=== PATIENT | male | born 1960 | race Caucasian/White ===

== ENCOUNTER 2017-09-18 12:23 | Emergency (ER) | payer BC ==
[2017-09-18 12:27] VITALS: BP 156/91
[2017-09-18] MEDS ORDERED: Bacitracin/Neomycin/Polymyxin B Oint 0.9 GM U/D Packet TOP ONE (12:49)
[2017-09-18] MEDS ORDERED: Diphtheria,Pertussis(Acell),Tetanus Vaccine 0.5 ML SDV IM ONE (12:50)
--- NOTE | 2017-09-18 13:02 | EDM.PDOC ---
ED HPI GENERAL MEDICAL PROBLEM - General Chief Complaint: Upper Extremity Injury/Pain Stated Complaint: right hand crush injury Time Seen by Provider: 09/18/17 12:30 Source of Information: Reports: Patient History Limitations: Reports: No Limitations - History of Present Illness INITIAL COMMENTS - FREE TEXT/NARRATIVE: Patient is a 57-year-old who was working in his shop when he got his hand caught with a phase the bulk of the facial and a piece of metal he was seen in the ER where the blood was taken off their were swelling in the thumb area and there was a abrasions x-rays were obtained no fracture seen a Art dressing was done and patient sent home Onset: Today, Sudden Duration: Hour(s):, Getting Worse Location: Reports: Upper Extremity, Right Quality: Reports: Ache, Throbbing Severity: Moderate Improves with: Reports: Cold Therapy Worsens with: Reports: None, Movement Context: Reports: Trauma Associated Symptoms: Reports: Other Treatments FACULTY HEAD: Reports: Acetaminophen Right Hand Pain Score (Numeric/FACES): 3 - Related Data Allergies Allergy/AdvReac Type Severity Reaction Status Date / Time No Known Allergies Allergy Verified 09/18/17 12:28 Home Meds: Home Meds Acetaminophen [Tylenol] 650 mg PO Q6H PRN 06/18/16 [History] Aspirin [Halfprin] 81 mg PO BRK 06/18/16 [History] Cetirizine HCl [Zyrtec] 10 mg PO ASDIRECTED 06/18/16 [History] EPINEPHrine [Epipen] 0.3 mg IM ONETIME PRN 06/18/16 [History] Fluticasone Propionate [Flonase] 1 puff INH DAILY PRN 06/18/16 [History] Furosemide [Lasix] 20 mg PO DAILY PRN 06/18/16 [History] Losartan [Cozaar] 100 mg PO DAILY 06/18/16 [History] Multivitamin [One Daily Multivitamin] 1 each PO DAILY 09/18/17 [History] Past Medical History Cardiovascular History: Reports: High Cholesterol, Hypertension, Other (See Below) Other Cardiovascular History: extreme morbid obesity Gastrointestinal History: Reports: Diverticulosis, Hemorrhoids, Other (See Below ) Other Gastrointestinal History: hx of colon polyp x 1 Genitourinary History: Reports: Other (See Below) Other Genitourinary History: hypogonadism Musculoskeletal History: Reports: Fracture Endocrine/Metabolic History: Reports: Obesity/BMI 30+ Hematologic History: Reports: Other (See Below) Other Hematologic History: vitamin D deficiency - Infectious Disease History Infectious Disease History: Reports: Chicken Pox, Measles, Mumps - Past Surgical History Musculoskeletal Surgical History: Reports: Other (See Below) Other Musculoskeletal Surgeries/Procedures:: left ankle surgery Social & Family History - Tobacco Use Smoking Status *Q: Former Smoker Years of Tobacco use: 20 Packs/Tins Daily: 3 Used Tobacco, but Quit: Yes Month/Year Tobacco Last Used: 1 - Caffeine Use Caffeine Use: Reports: Coffee, Soda - Recreational Drug Use Recreational Drug Use: No Review of Systems - Review of Systems Review Of Systems: See Below Constitutional: Reports: No Symptoms Eyes: Reports: No Symptoms Ears: Reports: No Symptoms Nose: Reports: No Symptoms Mouth/Throat: Reports: No Symptoms Respiratory: Reports: No Symptoms Cardiovascular: Reports: No Symptoms GI/Abdominal: Reports: No Symptoms Genitourinary: Reports: No Symptoms Musculoskeletal: Reports: Hand Pain Skin: Reports: Wound Neurological: Reports: No Symptoms Psychiatric: Reports: No Symptoms ED EXAM, GENERAL - Physical Exam Exam: See Below Exam Limited By: No Limitations General Appearance: Alert, WD/WN, No Apparent Distress Ears: Normal External Exam, Normal Canal, Hearing Grossly Normal, Normal TMs Nose: Normal Inspection, Normal Mucosa, No Blood Throat/Mouth: Normal Inspection, Normal Lips, Normal Teeth, Normal Gums, Normal Oropharynx, Normal Voice, No Airway Compromise Head: Atraumatic, Normocephalic Neck: Normal Inspection, Supple, Non-Tender, Full Range of Motion Respiratory/Chest: No Respiratory Distress, Lungs Clear, Normal Breath Sounds, No Accessory Muscle Use, Chest Non-Tender Cardiovascular: Normal Peripheral Pulses, Regular Rate, Rhythm, No Edema, No Gallop, No JVD, No Murmur, No Rub GI/Abdominal: Normal Bowel Sounds, Soft, Non-Tender, No Organomegaly, No Distention, No Abnormal Bruit, No Mass (Male) Exam: Deferred Rectal (Males) Exam: Deferred Back Exam: Normal Inspection, Full Range of Motion, NT Extremities: Normal Capillary Refill, Other (Hand pain). No: Normal Inspection (Right hand swelling and abrasion) Neurological: Alert, Oriented, CN II-XII Intact, Normal Cognition, Normal Gait, Normal Reflexes, No Motor/Sensory Deficits Psychiatric: Normal Affect, Normal Mood Skin Exam: Warm, Dry, Normal Color, No Rash, Wound/Incision (Abrasion right thumb) Course - Vital Signs Last Recorded V/S: Last Vital Signs Temp 98 F 09/18/17 12:23 Pulse 78 09/18/17 12:23 Resp 20 09/18/17 12:23 BP 156/91 H 09/18/17 12:23 Pulse Ox 97 09/18/17 12:23 - Orders/Labs/Meds Orders: Active Orders 24 hr Category Date Time Status Vaccines to be Administered [RC] PER UNIT ROUTINE Care 09/18/17 12:52 Ordered Hand Comp Min 3V Rt [CR] Stat Exams 09/18/17 12:36 Taken Bacitracin/Neomycin/Polymyxin [Triple Antibiotic Oint] Med 09/18/17 12:49 Once 2 each TOP ONETIME ONE Diphth,Pertuss(Acell),Tet Vac [Adacel] Med 09/18/17 12:50 Once 0.5 ml IM .ONCE ONE Departure - Departure Time of Disposition: 13:22 Disposition: Home, Self-Care 01 Condition: Fair Clinical Impression: Crush injury of hand - Discharge Information Care Plan Goals: A Art dressing was applied patient is to leave it on for 4 days follow-up in the clinic take Tylenol for pain ice to hand - My Orders Last 24 Hours: My Active Orders 09/18/17 12:36 Hand Comp Min 3V Rt [CR] Stat 09/18/17 12:49 Bacitracin/Neomycin/Polymyxin [Triple Antibiotic Oint] 2 each TOP ONETIME ONE 09/18/17 12:50 Diphth,Pertuss(Acell),Tet Vac [Adacel] 0.5 ml IM .ONCE ONE 09/18/17 12:52 Vaccines to be Administered [RC] PER UNIT ROUTINE - Assessment/Plan Last 24 Hours: My Active Orders 09/18/17 12:36 Hand Comp Min 3V Rt [CR] Stat 09/18/17 12:49 Bacitracin/Neomycin/Polymyxin [Triple Antibiotic Oint] 2 each TOP ONETIME ONE 09/18/17 12:50 Diphth,Pertuss(Acell),Tet Vac [Adacel] 0.5 ml IM .ONCE ONE 09/18/17 12:52 Vaccines to be Administered [RC] PER UNIT ROUTINE
== END 2017-09-18 13:32 | disposition home or self-care (01) ==
LOC: LL.ED 12:23
DX: S67.21XA Crushing injury of right hand, initial encounter (principal); S60.311A Abrasion of right thumb, initial encounter; Z23 Encounter for immunization; W23.1XXA Caught, crushed, jammed, or pinched between stationary objects, initial encounter; Y99.0 Civilian activity done for income or pay
CPT/HCPCS: 73130-RT; 90715; 96372; 99283

== ENCOUNTER 2021-02-26 14:48 | Inpatient (IN) | payer BC ==
[2021-02-26] MEDS ORDERED: Dexamethasone 10 MG/ML SDV IVPUSH ONE (14:53)
[2021-02-26] MEDS ORDERED: Dexamethasone 2 MG Tab PO ONE (14:57)
--- NOTE | 2021-02-26 15:01 | EDM.PDOC ---
ED HPI GENERAL MEDICAL PROBLEM - General Chief Complaint: Respiratory Problem Stated Complaint: Hypoxia, COVID 19 Time Seen by Provider: 02/26/21 14:50 Source of Information: Reports: Patient History Limitations: Reports: No Limitations - History of Present Illness INITIAL COMMENTS - FREE TEXT/NARRATIVE: Patient comes emergency department today with concerns of COVID-19. This patient started with symptoms of fatigue not feeling well about 7 to 9 days ago. He had an outpatient Covid test that was positive yesterday. He contacted his clinic and they ordered monoclonal antibody therapy for him today. It was noted when he was here after he received his monoclonal antibody that his oxygen saturation has been in the low 80s. He is very tired he has fatigue. He has not been eating or drinking much. He has not been taking his chronic medications. He has had a congested cough that is nonproductive. He has no chest pain he has some generalized weakness. No palpitations lightheadedness dizziness or syncope. No abdominal pain he has had poor appetite nausea without vomiting. No hematuria dysuria urinary frequency. No black or tarry stools. He is not vaccinated. Does have a history of hypertension borderline diabetes. he does have a history of sleep apnea hypertension morbid obesity hypercholesteremia pancytopenia tubular adenoma the colon hemorrhage of the rectum and anus. - Related Data Allergies Allergy/AdvReac Type Severity Reaction Status Date / Time metformin Allergy Anaphylactic Verified 02/26/21 14:17 Shock Home Meds: Home Meds Acetaminophen [Tylenol] 1,000 mg PO Q4HR PRN 06/18/16 [History] Aspirin [Halfprin] 81 mg PO BRK 06/18/16 [History] Cetirizine HCl [Zyrtec] 10 mg PO ASDIRECTED 06/18/16 [History] Fluticasone Propionate [Flonase] 1 puff INH BID PRN 06/18/16 [History] Losartan [Cozaar] 100 mg PO DAILY 06/18/16 [History] Diclofenac Sodium [Voltaren 1% Gel] 2 gm TOP BID 05/24/20 [History] Naproxen Sodium [Aleve] 220 mg PO BID PRN 05/24/20 [History] atorvaSTATin [Lipitor] 10 mg PO DAILY 05/24/20 [History] bisacodyL [Bisacodyl] 5 mg PO BEDTIME PRN 05/24/20 [History] dilTIAZem HCL [Diltiazem 24Hr ER (Cd)] 180 mg PO DAILY 05/24/20 [History] hydroCHLOROthiazide [Hydrochlorothiazide] 25 mg PO DAILY 05/24/20 [History] polyethylene glycoL 3350 [MiraLAX] 17 gm PO DAILY 05/24/20 [History] Past Medical History HEENT History: Reports: Impaired Vision Cardiovascular History: Reports: High Cholesterol, Hypertension, Other (See Below) Other Cardiovascular History: extreme morbid obesity Gastrointestinal History: Reports: Diverticulosis, Hemorrhoids, Other (See Below) Other Gastrointestinal History: hx of colon polyp x 1 Genitourinary History: Reports: Other (See Below) Other Genitourinary History: hypogonadism. 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 left knee replacement. rt rotator cuff. fx wrist Social & Family History - Family History Family Medical History: No Pertinent Family History - Caffeine Use Caffeine Use: Reports: Coffee, Soda ED ROS GENERAL - Review of Systems Review Of Systems: Comprehensive ROS is negative, except as noted in HPI. ED EXAM, GENERAL - Physical Exam Exam: See Below Exam Limited By: No Limitations General Appearance: Alert, WD/WN, No Apparent Distress Eye Exam: Bilateral Eye: EOMI Ears: Normal External Exam Nose: Normal Inspection, Normal Mucosa Throat/Mouth: Normal Inspection Head: Atraumatic, Normocephalic Neck: Normal Inspection, Supple, Non-Tender, Full Range of Motion Respiratory/Chest: No Respiratory Distress, No Accessory Muscle Use, Decreased Breath Sounds, Wheezing (inspiratory and expiratory wheezing bilaterally. ) Cardiovascular: Normal Peripheral Pulses, Regular Rate, Rhythm Peripheral Pulses: 2+: Radial (L), Radial (R), Posterior Tibial (L), Posterior Tibial (R), Dorsalis Pedis (L), Dorsalis Pedis (R) GI/Abdominal: Normal Bowel Sounds, Soft, Non-Tender (Male) Exam: Deferred Rectal (Males) Exam: Deferred Back Exam: Normal Inspection, Full Range of Motion Extremities: Normal Inspection, Normal Range of Motion, Normal Capillary Refill Neurological: Alert, Oriented, CN II-XII Intact, Normal Cognition, Normal Gait, No Motor/Sensory Deficits Psychiatric: Normal Affect, Normal Mood Skin Exam: Warm, Dry, Intact, Normal Color, No Rash Lymphatic: No Adenopathy Course - Vital Signs Last Recorded V/S: Last Vital Signs Temp 97.8 F 02/26/21 16:24 Pulse 98 02/26/21 18:00 Resp 30 H 02/26/21 16:24 BP 136/73 02/26/21 18:00 Pulse Ox 94 L 02/26/21 18:00 - Orders/Labs/Meds Orders: Active Orders 24 hr Category Date Time Status Admission Status [Patient Status] [ADT] Routine ADT 02/26/21 17:18 Active RT Aerosol Therapy [RC] ASDIRECTED Care 02/26/21 15:07 Active Chest 1V Frontal [CR] Stat Exams 02/26/21 14:52 Taken CULTURE BLOOD [BC] Stat Lab 02/26/21 15:26 Received CULTURE BLOOD [BC] Stat Lab 02/26/21 15:35 Received PROCALCITONIN [REF] Stat Lab 02/26/21 15:26 Received UA RFX ALAYNA AND CULT IF INDIC [URIN] Stat Lab 02/26/21 14:52 Ordered Blood Culture x2 Reflex Set [OM.PC] Stat Oth 02/26/21 14:52 Ordered Medication Orders Acetaminophen (Acetaminophen 325 Mg Tab) 650 mg PO Q4H PRN PRN Reason: Pain (Mild 1-3)/fever Dexamethasone (Dexamethasone 2 Mg Tab) 6 mg PO DAILY [facility] Enoxaparin Sodium (Enoxaparin 40 Mg/0.4 Ml Syringe) 40 mg SUBCUT BID [facility] Last Admin: 02/26/21 20:00 Dose: 40 mg Documented by: GUZMAN Potassium Chloride/Sodium Chloride (Normal Saline With 20 Meq Kcl) 1,000 mls @ 125 mls/hr IV ASDIRECTED [facility] Last Admin: 02/26/21 18:04 Dose: 125 mls/hr Documented by: DEVYN Remdesivir 100 mg/ Sodium (Chloride) 100 mls @ 100 mls/hr IV Q24H [facility] Labs: Laboratory Tests 09/01/21 09/01/21 09/01/21 Range/Units 15:26 15:26 15:26 WBC 6.2 (4.0-10.2) K/uL RBC 4.61 (4.33-5.41) M/uL Hgb 14.0 D (13.1-16.8) g/dL Hct 39.8 (39.0-49.0) % MCV 86.3 (84.0-98.0) fL MCH 30.4 (28.2-33.3) pg MCHC 35.2 (31.7-36.0) g/dL RDW 13.1 (11.2-14.1) % Plt Count 133 L (150-350) K/uL Neut % (Auto) 82.3 H (45.0-80.0) % Lymph % (Auto) 9.4 L (10.0-50.0) % Valley % (Auto) 8.0 (2.0-14.0) % Eos % (Auto) 0.0 (0.0-5.0) % Baso % (Auto) 0.3 (0.0-2.0) % Neut # (Auto) 5.07 (1.40-7.00) K/uL Lymph # (Auto) 0.58 (0.50-3.50) K/uL Valley # (Auto) 0.49 (0.00-1.00) K/uL Eos # (Auto) 0.00 (0.00-0.50) K/uL Baso # (Auto) 0.02 (0.00-0.20) K/uL PT 10.9 (9.5-12.0) SEC INR 1.1 APTT 29.1 (24.5-32.8) SEC D-Dimer, Quantitative (0-400) ng/mL VBG pH (7.31-7.41) VBG pCO2 (41-51) mmHG VBG pO2 mmHG VBG HCO3 (23-28) mmol/L VBG Total CO2 mmol/L VBG O2 Saturation % VBG Base Excess ((-2)-3) mmol/L O2 Delivery Device Sodium 135 L (136-145) mmol/L Potassium 3.3 L (3.5-5.1) mmol/L Chloride 97 L (98-107) mmol/L Carbon Dioxide 30.6 (21.0-32.0) mmol/L Anion Gap 10.7 (7-15) meq/L BUN 23 H (7-18) mg/dL Creatinine 1.35 H (0.51-1.17) mg/dL Est Cr Clr Drug Dosing TNP Estimated GFR (MDRD) 53 mL/min Glucose 211 H (70-99) mg/dL Lactic Acid (0.4-2.0) mmol/L Calcium 8.5 (8.5-10.1) mg/dL Ferritin (8-388) ng/mL Total Bilirubin 1.0 (0.2-1.0) mg/dL AST 33 (15-37) U/L ALT 29 (12-78) U/L Alkaline Phosphatase 44 L (46-116) IU/L Lactate Dehydrogenase 328 H (81-234) U/L Troponin I High Sens 51 (<=76) ng/L C-Reactive Protein 17.2 H (<=0.9) mg/dL NT-Pro-B Natriuret Pep 214 H (0-125) pg/mL Total Protein 7.0 (6.4-8.2) g/dL Albumin 2.9 L (3.4-5.0) g/dL 02/26/21 02/26/21 02/26/21 Range/Units 15:26 15:26 15:26 WBC (4.0-10.2) K/uL RBC (4.33-5.41) M/uL Hgb (13.1-16.8) g/dL Hct (39.0-49.0) % MCV (84.0-98.0) fL MCH (28.2-33.3) pg MCHC (31.7-36.0) g/dL RDW (11.2-14.1) % Plt Count (150-350) K/uL Neut % (Auto) (45.0-80.0) % Lymph % (Auto) (10.0-50.0) % Valley % (Auto) (2.0-14.0) % Eos % (Auto) (0.0-5.0) % Baso % (Auto) (0.0-2.0) % Neut # (Auto) (1.40-7.00) K/uL Lymph # (Auto) (0.50-3.50) K/uL Valley # (Auto) (0.00-1.00) K/uL Eos # (Auto) (0.00-0.50) K/uL Baso # (Auto) (0.00-0.20) K/uL PT (9.5-12.0) SEC INR APTT (24.5-32.8) SEC D-Dimer, Quantitative 915 H (0-400) ng/mL VBG pH (7.31-7.41) VBG pCO2 (41-51) mmHG VBG pO2 mmHG VBG HCO3 (23-28) mmol/L VBG Total CO2 mmol/L VBG O2 Saturation % VBG Base Excess ((-2)-3) mmol/L O2 Delivery Device Sodium (136-145) mmol/L Potassium (3.5-5.1) mmol/L Chloride (98-107) mmol/L Carbon Dioxide (21.0-32.0) mmol/L Anion Gap (7-15) meq/L BUN (7-18) mg/dL Creatinine (0.51-1.17) mg/dL Est Cr Clr Drug Dosing Estimated GFR (MDRD) mL/min Glucose (70-99) mg/dL Lactic Acid 1.2 (0.4-2.0) mmol/L Calcium (8.5-10.1) mg/dL Ferritin 1436 H (8-388) ng/mL Total Bilirubin (0.2-1.0) mg/dL AST (15-37) U/L ALT (12-78) U/L Alkaline Phosphatase (46-116) IU/L Lactate Dehydrogenase (81-234) U/L Troponin I High Sens (<=76) ng/L C-Reactive Protein (<=0.9) mg/dL NT-Pro-B Natriuret Pep (0-125) pg/mL Total Protein (6.4-8.2) g/dL Albumin (3.4-5.0) g/dL 02/26/21 Range/Units 15:26 WBC (4.0-10.2) K/uL RBC (4.33-5.41) M/uL Hgb (13.1-16.8) g/dL Hct (39.0-49.0) % MCV (84.0-98.0) fL MCH (28.2-33.3) pg MCHC (31.7-36.0) g/dL RDW (11.2-14.1) % Plt Count (150-350) K/uL Neut % (Auto) (45.0-80.0) % Lymph % (Auto) (10.0-50.0) % Valley % (Auto) (2.0-14.0) % Eos % (Auto) (0.0-5.0) % Baso % (Auto) (0.0-2.0) % Neut # (Auto) (1.40-7.00) K/uL Lymph # (Auto) (0.50-3.50) K/uL Valley # (Auto) (0.00-1.00) K/uL Eos # (Auto) (0.00-0.50) K/uL Baso # (Auto) (0.00-0.20) K/uL PT (9.5-12.0) SEC INR APTT (24.5-32.8) SEC D-Dimer, Quantitative (0-400) ng/mL VBG pH 7.45 H (7.31-7.41) VBG pCO2 42 (41-51) mmHG VBG pO2 193 mmHG VBG HCO3 29 H (23-28) mmol/L VBG Total CO2 29 mmol/L VBG O2 Saturation 100 % VBG Base Excess 4 H ((-2)-3) mmol/L O2 Delivery Device Nasal cannula Sodium (136-145) mmol/L Potassium (3.5-5.1) mmol/L Chloride (98-107) mmol/L Carbon Dioxide (21.0-32.0) mmol/L Anion Gap (7-15) meq/L BUN (7-18) mg/dL Creatinine (0.51-1.17) mg/dL Est Cr Clr Drug Dosing Estimated GFR (MDRD) mL/min Glucose (70-99) mg/dL Lactic Acid (0.4-2.0) mmol/L Calcium (8.5-10.1) mg/dL Ferritin (8-388) ng/mL Total Bilirubin (0.2-1.0) mg/dL AST (15-37) U/L ALT (12-78) U/L Alkaline Phosphatase (46-116) IU/L Lactate Dehydrogenase (81-234) U/L Troponin I High Sens (<=76) ng/L C-Reactive Protein (<=0.9) mg/dL NT-Pro-B Natriuret Pep (0-125) pg/mL Total Protein (6.4-8.2) g/dL Albumin (3.4-5.0) g/dL Meds: Medications Generic Name Dose Route Start Last Admin Trade Name Niranjan PRN Reason Stop Dose Admin Acetaminophen 650 mg 02/26/21 17:33 Acetaminophen 325 Mg Tab PO Q4H PRN Pain (Mild 1-3)/fever Dexamethasone 6 mg 02/27/21 08:00 Dexamethasone 2 Mg Tab PO DAILY CORINNA Enoxaparin Sodium 40 mg 02/26/21 18:00 02/26/21 20:00 Enoxaparin 40 Mg/0.4 Ml Syringe SUBCUT 40 mg BID CORINNA Administration Potassium Chloride/Sodium Chloride 1,000 mls @ 125 mls/hr 02/26/21 17:30 02/26/21 18:04 Normal Saline With 20 Meq Kcl IV 125 mls/hr ASDIRECTED CORINNA Administration Remdesivir 100 mg/ Sodium 100 mls @ 100 mls/hr 02/27/21 17:30 Chloride IV Q24H CORINNA Discontinued Medications Generic Name Dose Route Start Last Admin Trade Name Niranjan PRN Reason Stop Dose Admin Albuterol/Ipratropium 3 ml 02/26/21 15:07 02/26/21 18:05 Albuterol/Ipratropium 3.0-0.5 Mg/3 Ml Neb Soln NEB 02/26/21 15:08 3 ml ONETIME ONE Administration Albuterol/Ipratropium Confirm 02/26/21 17:27 02/26/21 18:02 Albuterol/Ipratropium 3.0-0.5 Mg/3 Ml Neb Soln Administered 02/26/21 17:28 Not Given Dose 3 ml .ROUTE .STK-MED ONE Budesonide 0.5 mg 02/26/21 15:07 02/26/21 18:05 Budesonide 0.5 Mg/2 Ml Neb Susp NEB 02/26/21 15:08 0.5 mg ONETIME ONE Administration Budesonide Confirm 02/26/21 17:27 02/26/21 18:02 Budesonide 0.5 Mg/2 Ml Neb Susp Administered 02/26/21 17:28 Not Given Dose 0.5 mg .ROUTE .STK-MED ONE Dexamethasone 6 mg 02/26/21 14:57 02/26/21 18:05 Dexamethasone 2 Mg Tab PO 02/26/21 14:58 6 mg ONETIME ONE Administration Dexamethasone Confirm 02/26/21 17:26 02/26/21 18:03 Dexamethasone 2 Mg Tab Administered 02/26/21 17:27 Not Given Dose 6 mg .ROUTE .STK-MED ONE Remdesivir 200 mg/ Sodium 250 mls @ 250 mls/hr 02/26/21 17:30 02/26/21 19:54 Chloride IV 02/26/21 18:29 250 mls/hr ONETIME ONE Administration - Radiology Interpretation Free Text/Narrative:: Cardiac silhouette is enlarged. There are patchy airspace opacities mostly in the periphery of the lungs often seen with COVID-19 infection. No effusion or pneumothorax this is per radiology. - Re-Assessments/Exams Free Text/Narrative Re-Assessment/Exam: 02/26/21 15:08 Pts oxygen sats on Room air when i enter the room are 83%. Placed on 2 liters nc. Labs drawn Dexamethasone 6mg po nebulizers duo-neb and budesonide Laboratory evaluation WBC of 6.2, normal hemoglobin platelets of 133. D-dimer is mildly elevated at 915 although this was completed for screening of covid not for the presence of a PE. Blood gas with a pH of 7.45 PCO2 42 PO2 193 bicarb 29 base excess 4. Sodium 135, potassium 3.3 chloride 97, creatinine 1.35 with a baseline of 1.1 and a BUN of 23. Glucose 211. Ferritin 1436 LDH 328 which is for reactivation measurement of Covid. Troponin is negative. C-reactive protein 17.2. proBNP 214. This patient did receive his monoclonal antibody therapy today. Although a lot of his symptoms were going on prior to this administration. There is no rash or any other signs of concern of a reaction from this. This patient was never seen or evaluated prior to his model clonal antibody therapy today. He is clearly tachypneic and hypoxic. He clearly has Covid and requiring up to 4 L of oxygen to keep his oxygen saturation above 92%. He did receive some dexamethasone as well as a DuoNeb and budesonide. I really would like to met this patient in the hospital for course of remdesivir as well as oxygen therapy dexamethasone and to monitor his clinical progress. Patient does not want to be admitted into the hospital. He really wants to go home. He does not understand why after 63 years he needs oxygen now. He really is concerned about someone trying to put his CPAP max on him with his history of sleep apnea. I explained to him that in the last 63 years he does not have a Covid as he does today. He is requiring oxygen therapy we are unable to initiate it for him at home. Also with his untreated sleep apnea his other laboratory evaluation and his poor intake I think it is best for him to be hospitalized. I am unable to o ffer remdesivir for him on the outpatient setting. The patient does consent to be admitted here into the hospital after much discussion. Departure - Departure Time of Disposition: 17:30 Disposition: Admitted As Inpatient 64 Clinical Impression: COVID-19, Hypoxia - Discharge Information Sepsis Event Note (ED) - Focused Exam Vital Signs: Vital Signs Temp Pulse Resp BP Pulse Ox 02/26/21 16:24 97.8 F 101 H 30 H 135/71 95 - Problem List & Annotations (1) Hypertension SNOMED Code(s): 86670259 Code(s): I10 - ESSENTIAL (PRIMARY) HYPERTENSION Status: Acute Current Visit: No Annotation/Comment:: Blood pressure at this time is controlled at 1 3571. He is on losartan at home but current guidelines do not recommend the discontinuation of TREMAYNE inhibitor's. We will continue his home regimen and mo nitor his blood pressure. (2) Hypercholesteremia SNOMED Code(s): 18304727 Code(s): E78.00 - PURE HYPERCHOLESTEROLEMIA, UNSPECIFIED Status: Acute Current Visit: No Annotation/Comment:: Stable continue home therapy. (3) Sleep apnea SNOMED Code(s): 58298380 Code(s): G47.30 - SLEEP APNEA, UNSPECIFIED Status: Acute Current Visit: No Annotation/Comment:: Patient is resistant to CPAP usage. Although in the hospital we will use nasal cannula at this time and monitor his oxygen saturation. Upon discharge a consideration for referral for sleep apnea machine is high on this patient's priority list especially with his rather large comorbid obesity. (4) COVID-19 SNOMED Code(s): 998955311 Code(s): U07.1 - COVID-19 Status: Acute Current Visit: No Annotation/Comment:: Patient symptoms approximately 7 to 10 days ago. He did receive monoclonal antibody therapy. Is requiring 2 to 3 L of nasal cannula to keep his oxygen saturation above 90%. He is in no distress. He is somewhat tachypneic. He will be given dexamethasone 6 mg p.o. daily. And started on remdesivir protocol. Monitor his labs. He is not vaccinated. Isolation. His lactic acid is normal today. Procalcitonin is a send out for us. We will trend his daily D-dimer ferritin LDH. As well as procalcitonin and other labs. (5) Hypoxia SNOMED Code(s): 818505798 Code(s): R09.02 - HYPOXEMIA Status: Acute Current Visit: No Annotation/Comment:: Hypoxia from COVID-19. He also has underlying sleep apnea. He is resistant to sleep apnea machine. Oxygen per nasal cannula to keep sats above 90%. Continue to monitor. (6) Morbid obesity SNOMED Code(s): 083392885 Code(s): E66.01 - MORBID (SEVERE) OBESITY DUE TO EXCESS CALORIES Status: Acute Current Visit: Yes - Problem List Review Problem List Initiated/Reviewed/Updated: Yes - My Orders Last 24 Hours: My Active Orders 02/26/21 14:52 Chest 1V Frontal [CR] Stat UA RFX ALAYNA AND CULT IF INDIC [URIN] Stat Blood Culture x2 Reflex Set [OM.PC] Stat 02/26/21 15:07 RT Aerosol Therapy [RC] ASDIRECTED 02/26/21 15:26 CULTURE BLOOD [BC] Stat PROCALCITONIN [REF] Stat 02/26/21 15:35 CULTURE BLOOD [BC] Stat 02/26/21 17:18 Admission Status [Patient Status] [ADT] Routine - Assessment/Plan Admission H&P: Please use this note as an admission H&P Last 24 Hours: My Active Orders 02/26/21 14:52 Chest 1V Frontal [CR] Stat UA RFX ALAYNA AND CULT IF INDIC [URIN] Stat Blood Culture x2 Reflex Set [OM.PC] Stat 02/26/21 15:07 RT Aerosol Therapy [RC] ASDIRECTED 02/26/21 15:26 CULTURE BLOOD [BC] Stat PROCALCITONIN [REF] Stat 02/26/21 15:35 CULTURE BLOOD [BC] Stat 02/26/21 17:18 Admission Status [Patient Status] [ADT] Routine Assessment:: Assessment/plan. As above. VTE: He will be placed on Lovenox 40 mg twice daily due to the presence of Covid. Sepsis: Lactic is normal. Blood cultures are pending. Procalcitonin is a send out. We will monitor him closely. No signs of bacterial infection at this time. Although will need a procalcitonin to make this determination. CODE STATUS full code. Patient will be admitted into the hospital under acute care services. I do not anticipate more than 3 to 4 days inpatient dependent on the clinical course. He will receive remdesivir until he is not receiving oxygen therapy. As well as dexamethasone. This patient is in no distress at this time but will have to ensure with his comorbid state that he does not worsen.
[2021-02-26] MEDS ORDERED: Budesonide 0.5 MG/2 ML Neb Susp NEB ONE (15:07)
[2021-02-26] MEDS ORDERED: Albuterol/Ipratropium 3.0-0.5 MG/3 ML Neb Soln NEB ONE (15:07)
[2021-02-26 15:44] LABS: O2 DELIVERY DEVICE NASAL CANNULA
[2021-02-26 16:03] LABS: PTT,PARTIAL THROMBOPLSTIN TIME 29.1 SEC (24.5-32.8)
[2021-02-26 16:15] LABS: CHLORIDE,CL 97 mmol/L (98-107); SODIUM,NA 135 mmol/L (136-145)
[2021-02-26 16:23] LABS: ANION GAP 10.7 meq/L (7-15)
[2021-02-26 16:40] LABS: PCO2 VENOUS 42 mmHG (41-51); PH,VENOUS 7.45 (7.31-7.41)
[2021-02-26 16:41] LABS: BASE EXCESS VENOUS 4 mmol/L ((-2)-3); BICARBONATE,VENOUS 29 mmol/L (23-28); O2 SATURATION VENOUS 100 %; PO2 VENOUS 193 mmHG
[2021-02-26] MEDS ORDERED: Dexamethasone 2 MG Tab ONE (17:26)
[2021-02-26] MEDS ORDERED: Budesonide 0.5 MG/2 ML Neb Susp ONE (17:27)
[2021-02-26] MEDS ORDERED: Albuterol/Ipratropium 3.0-0.5 MG/3 ML Neb Soln ONE (17:27)
[2021-02-26] MEDS ORDERED: REMDESIVIR 200 MG in Sodium Chloride 0.9% 250 ML IV ONE (17:30)
[2021-02-26] MEDS ORDERED: Acetaminophen 325 MG Tab PO PRN (17:33)
[2021-02-26] MEDS: NS + KCl 20mEq/L 1,000 ML IV SCH (18:04)
[2021-02-26] MEDS: Enoxaparin 40 MG/0.4 ML Syringe SUBCUT SCH (20:00)
[2021-02-26] MEDS ORDERED: Fluticasone Propionate Nasal Spray 16 GM Bottle NASBOTH PRN (20:04)
--- NOTE | 2021-02-26 20:20 | PCM.EKG ---
#1 Interpretation EKG Date: 02/26/21 Time: 19:31 Rhythm: NSR Rate (Beats/Min): 105 Davis: Normal P-Wave: Present QRS: Wide ST-T: Normal QT: Normal Comparison: NA - No Prior EKG
[2021-02-27] MEDS: Aspirin 81 MG Tab.EC PO SCH (08:46)
[2021-02-27] MEDS: Dexamethasone 2 MG Tab PO SCH (08:46)
[2021-02-27] MEDS: atorvaSTATin 10 MG Tab PO SCH (08:46)
[2021-02-27] MEDS: Hydrochlorothiazide 25 MG Tab PO SCH (08:47)
[2021-02-27] MEDS: Diltiazem 180 MG Cap.CD PO SCH (08:47)
[2021-02-27] MEDS: Cetirizine 10 MG Tab PO SCH (08:47)
[2021-02-27] MEDS: Losartan 50 MG Tab PO SCH (08:47)
[2021-02-27] MEDS: Enoxaparin 40 MG/0.4 ML Syringe SUBCUT SCH ×2 (08:47→17:24)
[2021-02-27 10:27] LABS: ANION GAP 9.1 meq/L (7-15)
[2021-02-27] MEDS: NS + KCl 20mEq/L 1,000 ML IV SCH (12:38)
--- NOTE | 2021-02-27 12:41 | PCM.PN ---
- General Info Date of Service: 02/27/21 Admission Dx/Problem (Free Text): Covid 19 did receive monoclonal hypoxia weakeness hyponatremia hypokalemia ARISTIDES Subjective Update: The patient does feel quite bit better today. Even when I walked in the room he has more light in his eyes and he is smiling and happy and interactive he does not appear to be as listless as he did yesterday. He states himself he feels pretty good. He has no shortness of breath. No chest pain. No weakness dizziness lightheadedness. He does have mild intermittent cough. He has no abdominal pain nausea or vomiting. He has a good appetite. He has been voiding and having stools without difficulty. His weakness is improving from yesterday. He feels like he has more energy. - Patient Data Vitals - Most Recent: Last Vital Signs Temp 97.8 F 02/27/21 08:00 Pulse 72 02/27/21 08:00 Resp 18 02/27/21 08:00 BP 148/88 H 02/27/21 08:47 Pulse Ox 92 L 02/27/21 08:00 Weight - Most Recent: 400 lb I&O - Last 24 Hours: Intake & Output 02/26/21 02/27/21 02/27/21 22:59 06:59 14:59 Intake Total 300 Balance 300 Lab Results Last 24 Hours: Laboratory Results - last 24 hr 02/26/21 02/26/21 02/26/21 Range/Units 15:26 15:26 15:26 WBC 6.2 (4.0-10.2) K/uL RBC 4.61 (4.33-5.41) M/uL Hgb 14.0 D (13.1-16.8) g/dL Hct 39.8 (39.0-49.0) % MCV 86.3 (84.0-98.0) fL MCH 30.4 (28.2-33.3) pg MCHC 35.2 (31.7-36.0) g/dL RDW 13.1 (11.2-14.1) % Plt Count 133 L (150-350) K/uL Neut % (Auto) 82.3 H (45.0-80.0) % Lymph % (Auto) 9.4 L (10.0-50.0) % Harvey % (Auto) 8.0 (2.0-14.0) % Eos % (Auto) 0.0 (0.0-5.0) % Baso % (Auto) 0.3 (0.0-2.0) % Neut # (Auto) 5.07 (1.40-7.00) K/uL Lymph # (Auto) 0.58 (0.50-3.50) K/uL Harvey # (Auto) 0.49 (0.00-1.00) K/uL Eos # (Auto) 0.00 (0.00-0.50) K/uL Baso # (Auto) 0.02 (0.00-0.20) K/uL PT 10.9 (9.5-12.0) SEC INR 1.1 APTT 29.1 (24.5-32.8) SEC D-Dimer, Quantitative (0-400) ng/mL VBG pH (7.31-7.41) VBG pCO2 (41-51) mmHG VBG pO2 mmHG VBG HCO3 (23-28) mmol/L VBG Total CO2 mmol/L VBG O2 Saturation % VBG Base Excess ((-2)-3) mmol/L O2 Delivery Device Sodium 135 L (136-145) mmol/L Potassium 3.3 L (3.5-5.1) mmol/L Chloride 97 L (98-107) mmol/L Carbon Dioxide 30.6 (21.0-32.0) mmol/L Anion Gap 10.7 (7-15) meq/L BUN 23 H (7-18) mg/dL Creatinine 1.35 H (0.51-1.17) mg/dL Est Cr Clr Drug Dosing TNP Estimated GFR (MDRD) 53 mL/min Glucose 211 H (70-99) mg/dL Lactic Acid (0.4-2.0) mmol/L Calcium 8.5 (8.5-10.1) mg/dL Magnesium (1.8-2.4) mg/dL Ferritin (8-388) ng/mL Total Bilirubin 1.0 (0.2-1.0) mg/dL Direct Bilirubin (0.0-0.2) mg/dL AST 33 (15-37) U/L ALT 29 (12-78) U/L Alkaline Phosphatase 44 L (46-116) IU/L Lactate Dehydrogenase 328 H (81-234) U/L Troponin I High Sens 51 (<=76) ng/L C-Reactive Protein 17.2 H (<=0.9) mg/dL NT-Pro-B Natriuret Pep 214 H (0-125) pg/mL Total Protein 7.0 (6.4-8.2) g/dL Albumin 2.9 L (3.4-5.0) g/dL 02/26/21 02/26/21 02/26/21 Range/Units 15:26 15:26 15:26 WBC (4.0-10.2) K/uL RBC (4.33-5.41) M/uL Hgb (13.1-16.8) g/dL Hct (39.0-49.0) % MCV (84.0-98.0) fL MCH (28.2-33.3) pg MCHC (31.7-36.0) g/dL RDW (11.2-14.1) % Plt Count (150-350) K/uL Neut % (Auto) (45.0-80.0) % Lymph % (Auto) (10.0-50.0) % Harvey % (Auto) (2.0-14.0) % Eos % (Auto) (0.0-5.0) % Baso % (Auto) (0.0-2.0) % Neut # (Auto) (1.40-7.00) K/uL Lymph # (Auto) (0.50-3.50) K/uL Harvey # (Auto) (0.00-1.00) K/uL Eos # (Auto) (0.00-0.50) K/uL Baso # (Auto) (0.00-0.20) K/uL PT (9.5-12.0) SEC INR APTT (24.5-32.8) SEC D-Dimer, Quantitative 915 H (0-400) ng/mL VBG pH (7.31-7.41) VBG pCO2 (41-51) mmHG VBG pO2 mmHG VBG HCO3 (23-28) mmol/L VBG Total CO2 mmol/L VBG O2 Saturation % VBG Base Excess ((-2)-3) mmol/L O2 Delivery Device Sodium (136-145) mmol/L Potassium (3.5-5.1) mmol/L Chloride (98-107) mmol/L Carbon Dioxide (21.0-32.0) mmol/L Anion Gap (7-15) meq/L BUN (7-18) mg/dL Creatinine (0.51-1.17) mg/dL Est Cr Clr Drug Dosing Estimated GFR (MDRD) mL/min Glucose (70-99) mg/dL Lactic Acid 1.2 (0.4-2.0) mmol/L Calcium (8.5-10.1) mg/dL Magnesium (1.8-2.4) mg/dL Ferritin 1436 H (8-388) ng/mL Total Bilirubin (0.2-1.0) mg/dL Direct Bilirubin (0.0-0.2) mg/dL AST (15-37) U/L ALT (12-78) U/L Alkaline Phosphatase (46-116) IU/L Lactate Dehydrogenase (81-234) U/L Troponin I High Sens (<=76) ng/L C-Reactive Protein (<=0.9) mg/dL NT-Pro-B Natriuret Pep (0-125) pg/mL Total Protein (6.4-8.2) g/dL Albumin (3.4-5.0) g/dL 02/26/21 02/27/21 02/27/21 Range/Units 15:26 05:11 05:11 WBC 5.7 (4.0-10.2) K/uL RBC 4.90 (4.33-5.41) M/uL Hgb 14.8 (13.1-16.8) g/dL Hct 41.9 (39.0-49.0) % MCV 85.5 (84.0-98.0) fL MCH 30.2 (28.2-33.3) pg MCHC 35.3 (31.7-36.0) g/dL RDW 13.1 (11.2-14.1) % Plt Count 132 L (150-350) K/uL Neut % (Auto) 87.0 H (45.0-80.0) % Lymph % (Auto) 6.8 L (10.0-50.0) % Harvey % (Auto) 5.9 (2.0-14.0) % Eos % (Auto) 0.0 (0.0-5.0) % Baso % (Auto) 0.3 (0.0-2.0) % Neut # (Auto) 4.98 (1.40-7.00) K/uL Lymph # (Auto) 0.39 L (0.50-3.50) K/uL Harvey # (Auto) 0.34 (0.00-1.00) K/uL Eos # (Auto) 0.00 (0.00-0.50) K/uL Baso # (Auto) 0.02 (0.00-0.20) K/uL PT (9.5-12.0) SEC INR APTT (24.5-32.8) SEC D-Dimer, Quantitative (0-400) ng/mL VBG pH 7.45 H (7.31-7.41) VBG pCO2 42 (41-51) mmHG VBG pO2 193 mmHG VBG HCO3 29 H (23-28) mmol/L VBG Total CO2 29 mmol/L VBG O2 Saturation 100 % VBG Base Excess 4 H ((-2)-3) mmol/L O2 Delivery Device Nasal cannula Sodium (136-145) mmol/L Potassium (3.5-5.1) mmol/L Chloride (98-107) mmol/L Carbon Dioxide (21.0-32.0) mmol/L Anion Gap (7-15) meq/L BUN (7-18) mg/dL Creatinine (0.51-1.17) mg/dL Est Cr Clr Drug Dosing Estimated GFR (MDRD) mL/min Glucose (70-99) mg/dL Lactic Acid 1.5 (0.4-2.0) mmol/L Calcium (8.5-10.1) mg/dL Magnesium (1.8-2.4) mg/dL Ferritin (8-388) ng/mL Total Bilirubin (0.2-1.0) mg/dL Direct Bilirubin (0.0-0.2) mg/dL AST (15-37) U/L ALT (12-78) U/L Alkaline Phosphatase (46-116) IU/L Lactate Dehydrogenase (81-234) U/L Troponin I High Sens (<=76) ng/L C-Reactive Protein (<=0.9) mg/dL NT-Pro-B Natriuret Pep (0-125) pg/mL Total Protein (6.4-8.2) g/dL Albumin (3.4-5.0) g/dL 02/27/21 02/27/21 02/27/21 Range/Units 05:11 05:11 08:45 WBC (4.0-10.2) K/uL RBC (4.33-5.41) M/uL Hgb (13.1-16.8) g/dL Hct (39.0-49.0) % MCV (84.0-98.0) fL MCH (28.2-33.3) pg MCHC (31.7-36.0) g/dL RDW (11.2-14.1) % Plt Count (150-350) K/uL Neut % (Auto) (45.0-80.0) % Lymph % (Auto) (10.0-50.0) % Harvey % (Auto) (2.0-14.0) % Eos % (Auto) (0.0-5.0) % Baso % (Auto) (0.0-2.0) % Neut # (Auto) (1.40-7.00) K/uL Lymph # (Auto) (0.50-3.50) K/uL Harvey # (Auto) (0.00-1.00) K/uL Eos # (Auto) (0.00-0.50) K/uL Baso # (Auto) (0.00-0.20) K/uL PT (9.5-12.0) SEC INR APTT (24.5-32.8) SEC D-Dimer, Quantitative 914 H (0-400) ng/mL VBG pH (7.31-7.41) VBG pCO2 (41-51) mmHG VBG pO2 mmHG VBG HCO3 (23-28) mmol/L VBG Total CO2 mmol/L VBG O2 Saturation % VBG Base Excess ((-2)-3) mmol/L O2 Delivery Device Sodium 139 (136-145) mmol/L Potassium 3.7 (3.5-5.1) mmol/L Chloride 100 (98-107) mmol/L Carbon Dioxide 33.6 H (21.0-32.0) mmol/L Anion Gap 9.1 (7-15) meq/L BUN 23 H (7-18) mg/dL Creatinine 1.24 H (0.51-1.17) mg/dL Est Cr Clr Drug Dosing 72.88 Estimated GFR (MDRD) 59 mL/min Glucose 305 H (70-99) mg/dL Lactic Acid (0.4-2.0) mmol/L Calcium 8.2 L (8.5-10.1) mg/dL Magnesium 2.3 (1.8-2.4) mg/dL Ferritin 1725 H (8-388) ng/mL Total Bilirubin 0.9 (0.2-1.0) mg/dL Direct Bilirubin 0.3 H (0.0-0.2) mg/dL AST 32 (15-37) U/L ALT 36 (12-78) U/L Alkaline Phosphatase 51 (46-116) IU/L Lactate Dehydrogenase 340 H (81-234) U/L Troponin I High Sens (<=76) ng/L C-Reactive Protein 18.3 H (<=0.9) mg/dL NT-Pro-B Natriuret Pep (0-125) pg/mL Total Protein 6.5 (6.4-8.2) g/dL Albumin 2.8 L (3.4-5.0) g/dL Med Orders - Current: Current Medications Acetaminophen (Acetaminophen 325 Mg Tab) 650 mg PO Q4H PRN PRN Reason: Pain (Mild 1-3)/fever Last Admin: 02/26/21 21:28 Dose: 650 mg Documented by: Aspirin (Aspirin 81 Mg Tab.Ec) 81 mg PO DAILY COUNT INCLUDES THE [facility] Last Admin: 02/27/21 08:46 Dose: 81 mg Documented by: Atorvastatin Calcium (Atorvastatin 10 Mg Tab) 10 mg PO DAILY COUNT INCLUDES THE [facility] Last Admin: 02/27/21 08:46 Dose: 10 mg Documented by: Cetirizine HCl (Cetirizine 10 Mg Tab) 10 mg PO DAILY COUNT INCLUDES THE [facility] Last Admin: 02/27/21 08:47 Dose: 10 mg Documented by: Dexamethasone (Dexamethasone 2 Mg Tab) 6 mg PO DAILY COUNT INCLUDES THE [facility] Last Admin: 02/27/21 08:46 Dose: 6 mg Documented by: Diltiazem HCl (Diltiazem 180 Mg Cap.Cd) 180 mg PO DAILY COUNT INCLUDES THE [facility] Last Admin: 02/27/21 08:47 Dose: 180 mg Documented by: Enoxaparin Sodium (Enoxaparin 40 Mg/0.4 Ml Syringe) 40 mg SUBCUT BID COUNT INCLUDES THE [facility] Last Admin: 02/27/21 08:47 Dose: 40 mg Documented by: Fluticasone Propionate (Fluticasone Propionate Nasal [place] 16 Gm Bottle) 0 gm NASBOTH BID PRN PRN Reason: Allergies Hydrochlorothiazide (Hydrochlorothiazide 25 Mg Tab) 25 mg PO DAILY COUNT INCLUDES THE [facility] Last Admin: 02/27/21 08:47 Dose: 25 mg Documented by: Potassium Chloride/Sodium Chloride (Normal Saline With 20 Meq Kcl) 1,000 mls @ 125 mls/hr IV ASDIRECTED COUNT INCLUDES THE [facility] Last Admin: 02/27/21 12:38 Dose: 125 mls/hr Documented by: Remdesivir 100 mg/ Sodium (Chloride) 100 mls @ 100 mls/hr IV Q24H COUNT INCLUDES THE [facility] Losartan Potassium (Losartan 50 Mg Tab) 100 mg PO DAILY COUNT INCLUDES THE [facility] Last Admin: 02/27/21 08:47 Dose: 100 mg Documented by: Discontinued Medications Albuterol/Ipratropium (Albuterol/Ipratropium 3.0-0.5 Mg/3 Ml Neb Soln) 3 ml NEB ONETIME ONE Stop: 02/26/21 15:08 Last Admin: 02/26/21 18:05 Dose: 3 ml Documented by: Albuterol/Ipratropium (Albuterol/Ipratropium 3.0-0.5 Mg/3 Ml Neb Soln) Confirm Administered Dose 3 ml .ROUTE .STK-MED ONE Stop: 02/26/21 17:28 Last Admin: 02/26/21 18:02 Dose: Not Given Documented by: Budesonide (Budesonide 0.5 Mg/2 Ml Neb Susp) 0.5 mg NEB ONETIME ONE Stop: 02/26/21 15:08 Last Admin: 02/26/21 18:05 Dose: 0.5 mg Documented by: Budesonide (Budesonide 0.5 Mg/2 Ml Neb Susp) Confirm Administered Dose 0.5 mg .ROUTE .STK-MED ONE Stop: 02/26/21 17:28 Last Admin: 02/26/21 18:02 Dose: Not Given Documented by: Dexamethasone (Dexamethasone 2 Mg Tab) 6 mg PO ONETIME ONE Stop: 02/26/21 14:58 Last Admin: 02/26/21 18:05 Dose: 6 mg Documented by: Dexamethasone (Dexamethasone 2 Mg Tab) Confirm Administered Dose 6 mg .ROUTE .STK-MED ONE Stop: 02/26/21 17:27 Last Admin: 02/26/21 18:03 Dose: Not Given Documented by: Remdesivir 200 mg/ Sodium (Chloride) 250 mls @ 250 mls/hr IV ONETIME ONE Stop: 02/26/21 18:29 Last Admin: 02/26/21 19:54 Dose: 250 mls/hr Documented by: - Exam Quality Assessment: Supplemental Oxygen (Still requiring 2 L of oxygen to keep his oxygen saturation therapeutic.) General: Alert, Oriented (This patient really appears much better than yesterday. He has some color to his face as well as more interaction and he looks more alert and does not appear as weak.) HEENT: Pupils Equal, Pupils Reactive Neck: Supple Lungs: Normal Respiratory Effort, Decreased Breath Sounds, Wheezing (Faint expiratory wheezing bilaterally) Cardiovascular: Regular Rate, Regular Rhythm GI/Abdominal Exam: Normal Bowel Sounds, Soft, Non-Tender, No Distention (Male) Exam: Deferred Back Exam: Normal Inspection Extremities: Normal Inspection, Normal Range of Motion, Non-Tender, No Pedal Edema, Normal Capillary Refill Peripheral Pulses: 2+: Radial (L), Radial (R), Posterior Tibial (L), Posterior Tibial (R), Dorsalis Pedis (L), Dorsalis Pedis (R) Skin: Warm, Dry, Intact Neurological: No New Focal Deficit Psy/Mental Status: Alert, Normal Affect, Normal Mood - Patient Data Lab Results Last 24 hrs: Laboratory Results - last 24 hr 02/26/21 02/26/21 02/26/21 Range/Units 15:26 15:26 15:26 WBC 6.2 (4.0-10.2) K/uL RBC 4.61 (4.33-5.41) M/uL Hgb 14.0 D (13.1-16.8) g/dL Hct 39.8 (39.0-49.0) % MCV 86.3 (84.0-98.0) fL MCH 30.4 (28.2-33.3) pg MCHC 35.2 (31.7-36.0) g/dL RDW 13.1 (11.2-14.1) % Plt Count 133 L (150-350) K/uL Neut % (Auto) 82.3 H (45.0-80.0) % Lymph % (Auto) 9.4 L (10.0-50.0) % Harvey % (Auto) 8.0 (2.0-14.0) % Eos % (Auto) 0.0 (0.0-5.0) % Baso % (Auto) 0.3 (0.0-2.0) % Neut # (Auto) 5.07 (1.40-7.00) K/uL Lymph # (Auto) 0.58 (0.50-3.50) K/uL Harvey # (Auto) 0.49 (0.00-1.00) K/uL Eos # (Auto) 0.00 (0.00-0.50) K/uL Baso # (Auto) 0.02 (0.00-0.20) K/uL PT 10.9 (9.5-12.0) SEC INR 1.1 APTT 29.1 (24.5-32.8) SEC D-Dimer, Quantitative (0-400) ng/mL VBG pH (7.31-7.41) VBG pCO2 (41-51) mmHG VBG pO2 mmHG VBG HCO3 (23-28) mmol/L VBG Total CO2 mmol/L VBG O2 Saturation % VBG Base Excess ((-2)-3) mmol/L O2 Delivery Device Sodium 135 L (136-145) mmol/L Potassium 3.3 L (3.5-5.1) mmol/L Chloride 97 L (98-107) mmol/L Carbon Dioxide 30.6 (21.0-32.0) mmol/L Anion Gap 10.7 (7-15) meq/L BUN 23 H (7-18) mg/dL Creatinine 1.35 H (0.51-1.17) mg/dL Est Cr Clr Drug Dosing TNP Estimated GFR (MDRD) 53 mL/min Glucose 211 H (70-99) mg/dL Lactic Acid (0.4-2.0) mmol/L Calcium 8.5 (8.5-10.1) mg/dL Magnesium (1.8-2.4) mg/dL Ferritin (8-388) ng/mL Total Bilirubin 1.0 (0.2-1.0) mg/dL Direct Bilirubin (0.0-0.2) mg/dL AST 33 (15-37) U/L ALT 29 (12-78) U/L Alkaline Phosphatase 44 L (46-116) IU/L Lactate Dehydrogenase 328 H (81-234) U/L Troponin I High Sens 51 (<=76) ng/L C-Reactive Protein 17.2 H (<=0.9) mg/dL NT-Pro-B Natriuret Pep 214 H (0-125) pg/mL Total Protein 7.0 (6.4-8.2) g/dL Albumin 2.9 L (3.4-5.0) g/dL 02/26/21 02/26/21 02/26/21 Range/Units 15:26 15:26 15:26 WBC (4.0-10.2) K/uL RBC (4.33-5.41) M/uL Hgb (13.1-16.8) g/dL Hct (39.0-49.0) % MCV (84.0-98.0) fL MCH (28.2-33.3) pg MCHC (31.7-36.0) g/dL RDW (11.2-14.1) % Plt Count (150-350) K/uL Neut % (Auto) (45.0-80.0) % Lymph % (Auto) (10.0-50.0) % Harvey % (Auto) (2.0-14.0) % Eos % (Auto) (0.0-5.0) % Baso % (Auto) (0.0-2.0) % Neut # (Auto) (1.40-7.00) K/uL Lymph # (Auto) (0.50-3.50) K/uL Harvey # (Auto) (0.00-1.00) K/uL Eos # (Auto) (0.00-0.50) K/uL Baso # (Auto) (0.00-0.20) K/uL PT (9.5-12.0) SEC INR APTT (24.5-32.8) SEC D-Dimer, Quantitative 915 H (0-400) ng/mL VBG pH (7.31-7.41) VBG pCO2 (41-51) mmHG VBG pO2 mmHG VBG HCO3 (23-28) mmol/L VBG Total CO2 mmol/L VBG O2 Saturation % VBG Base Excess ((-2)-3) mmol/L O2 Delivery Device Sodium (136-145) mmol/L Potassium (3.5-5.1) mmol/L Chloride (98-107) mmol/L Carbon Dioxide (21.0-32.0) mmol/L Anion Gap (7-15) meq/L BUN (7-18) mg/dL Creatinine (0.51-1.17) mg/dL Est Cr Clr Drug Dosing Estimated GFR (MDRD) mL/min Glucose (70-99) mg/dL Lactic Acid 1.2 (0.4-2.0) mmol/L Calcium (8.5-10.1) mg/dL Magnesium (1.8-2.4) mg/dL Ferritin 1436 H (8-388) ng/mL Total Bilirubin (0.2-1.0) mg/dL Direct Bilirubin (0.0-0.2) mg/dL AST (15-37) U/L ALT (12-78) U/L Alkaline Phosphatase (46-116) IU/L Lactate Dehydrogenase (81-234) U/L Troponin I High Sens (<=76) ng/L C-Reactive Protein (<=0.9) mg/dL NT-Pro-B Natriuret Pep (0-125) pg/mL Total Protein (6.4-8.2) g/dL Albumin (3.4-5.0) g/dL 02/26/21 02/27/21 02/27/21 Range/Units 15:26 05:11 05:11 WBC 5.7 (4.0-10.2) K/uL RBC 4.90 (4.33-5.41) M/uL Hgb 14.8 (13.1-16.8) g/dL Hct 41.9 (39.0-49.0) % MCV 85.5 (84.0-98.0) fL MCH 30.2 (28.2-33.3) pg MCHC 35.3 (31.7-36.0) g/dL RDW 13.1 (11.2-14.1) % Plt Count 132 L (150-350) K/uL Neut % (Auto) 87.0 H (45.0-80.0) % Lymph % (Auto) 6.8 L (10.0-50.0) % Harvey % (Auto) 5.9 (2.0-14.0) % Eos % (Auto) 0.0 (0.0-5.0) % Baso % (Auto) 0.3 (0.0-2.0) % Neut # (Auto) 4.98 (1.40-7.00) K/uL Lymph # (Auto) 0.39 L (0.50-3.50) K/uL Harvey # (Auto) 0.34 (0.00-1.00) K/uL Eos # (Auto) 0.00 (0.00-0.50) K/uL Baso # (Auto) 0.02 (0.00-0.20) K/uL PT (9.5-12.0) SEC INR APTT (24.5-32.8) SEC D-Dimer, Quantitative (0-400) ng/mL VBG pH 7.45 H (7.31-7.41) VBG pCO2 42 (41-51) mmHG VBG pO2 193 mmHG VBG HCO3 29 H (23-28) mmol/L VBG Total CO2 29 mmol/L VBG O2 Saturation 100 % VBG Base Excess 4 H ((-2)-3) mmol/L O2 Delivery Device Nasal cannula Sodium (136-145) mmol/L Potassium (3.5-5.1) mmol/L Chloride (98-107) mmol/L Carbon Dioxide (21.0-32.0) mmol/L Anion Gap (7-15) meq/L BUN (7-18) mg/dL Creatinine (0.51-1.17) mg/dL Est Cr Clr Drug Dosing Estimated GFR (MDRD) mL/min Glucose (70-99) mg/dL Lactic Acid 1.5 (0.4-2.0) mmol/L Calcium (8.5-10.1) mg/dL Magnesium (1.8-2.4) mg/dL Ferritin (8-388) ng/mL Total Bilirubin (0.2-1.0) mg/dL Direct Bilirubin (0.0-0.2) mg/dL AST (15-37) U/L ALT (12-78) U/L Alkaline Phosphatase (46-116) IU/L Lactate Dehydrogenase (81-234) U/L Troponin I High Sens (<=76) ng/L C-Reactive Protein (<=0.9) mg/dL NT-Pro-B Natriuret Pep (0-125) pg/mL Total Protein (6.4-8.2) g/dL Albumin (3.4-5.0) g/dL 02/27/21 02/27/21 02/27/21 Range/Units 05:11 05:11 08:45 WBC (4.0-10.2) K/uL RBC (4.33-5.41) M/uL Hgb (13.1-16.8) g/dL Hct (39.0-49.0) % MCV (84.0-98.0) fL MCH (28.2-33.3) pg MCHC (31.7-36.0) g/dL RDW (11.2-14.1) % Plt Count (150-350) K/uL Neut % (Auto) (45.0-80.0) % Lymph % (Auto) (10.0-50.0) % Harvey % (Auto) (2.0-14.0) % Eos % (Auto) (0.0-5.0) % Baso % (Auto) (0.0-2.0) % Neut # (Auto) (1.40-7.00) K/uL Lymph # (Auto) (0.50-3.50) K/uL Harvey # (Auto) (0.00-1.00) K/uL Eos # (Auto) (0.00-0.50) K/uL Baso # (Auto) (0.00-0.20) K/uL PT (9.5-12.0) SEC INR APTT (24.5-32.8) SEC D-Dimer, Quantitative 914 H (0-400) ng/mL VBG pH (7.31-7.41) VBG pCO2 (41-51) mmHG VBG pO2 mmHG VBG HCO3 (23-28) mmol/L VBG Total CO2 mmol/L VBG O2 Saturation % VBG Base Excess ((-2)-3) mmol/L O2 Delivery Device Sodium 139 (136-145) mmol/L Potassium 3.7 (3.5-5.1) mmol/L Chloride 100 (98-107) mmol/L Carbon Dioxide 33.6 H (21.0-32.0) mmol/L Anion Gap 9.1 (7-15) meq/L BUN 23 H (7-18) mg/dL Creatinine 1.24 H (0.51-1.17) mg/dL Est Cr Clr Drug Dosing 72.88 Estimated GFR (MDRD) 59 mL/min Glucose 305 H (70-99) mg/dL Lactic Acid (0.4-2.0) mmol/L Calcium 8.2 L (8.5-10.1) mg/dL Magnesium 2.3 (1.8-2.4) mg/dL Ferritin 1725 H (8-388) ng/mL Total Bilirubin 0.9 (0.2-1.0) mg/dL Direct Bilirubin 0.3 H (0.0-0.2) mg/dL AST 32 (15-37) U/L ALT 36 (12-78) U/L Alkaline Phosphatase 51 (46-116) IU/L Lactate Dehydrogenase 340 H (81-234) U/L Troponin I High Sens (<=76) ng/L C-Reactive Protein 18.3 H (<=0.9) mg/dL NT-Pro-B Natriuret Pep (0-125) pg/mL Total Protein 6.5 (6.4-8.2) g/dL Albumin 2.8 L (3.4-5.0) g/dL Result Diagrams: 02/27/21 05:11 02/27/21 08:45 Sepsis Event Note - Evaluation Sepsis Screening Result: No Definite Risk - Focused Exam Vital Signs: Vital Signs Temp Pulse Resp BP BP Pulse Ox 02/27/21 08:47 148/88 H 02/27/21 08:00 97.8 F 72 18 148/88 H 92 L 02/27/21 04:00 97.6 F 60 16 137/72 90 L - Problem List & Annotations (1) Hypertension SNOMED Code(s): 74322183 Code(s): I10 - ESSENTIAL (PRIMARY) HYPERTENSION Status: Acute Current Visit: No Annotation/Comment:: blood pressure today 148/88. COntinue home regimen is on a Landen inhibitor which we will continue. (2) Hypercholesteremia SNOMED Code(s): 21257564 Code(s): E78.00 - PURE HYPERCHOLESTEROLEMIA, UNSPECIFIED Status: Acute Current Visit: No Annotation/Comment:: Stable continue home therapy. (3) Sleep apnea SNOMED Code(s): 90314684 Code(s): G47.30 - SLEEP APNEA, UNSPECIFIED Status: Acute Current Visit: No Annotation/Comment:: Patient is resistant to CPAP usage. Although in the hospital we will use nasal cannula at this time and monitor his oxygen saturation. Upon discharge a consideration for referral for sleep apnea machine is high on this patient's priority list especially with his rather large comorbi d obesity. (4) COVID-19 SNOMED Code(s): 987117283 Code(s): U07.1 - COVID-19 Status: Acute Current Visit: No Annotation/Comment:: Patient is doing quite well today. He really never had much of cough or shortness of breath. He was mainly hypoxic. We will continue his dexamethasone as well as remdesivir. He has some faint expiratory wheezing. He has not requested any nebulizers. Continue therapy at this time. (5) Hypoxia SNOMED Code(s): 656687009 Code(s): R09.02 - HYPOXEMIA Status: Acute Current Visit: No Annotation/Comment:: Hypoxia from COVID-19. He also has underlying sleep apnea. He is resistant to sleep apnea machine. Oxygen per nasal cannula to keep sats above 90%. Continue to monitor. I will have case management visit with the patient today as he most likely will need oxygen therapy upon discharge especially with his sleep apnea and his morbid obesity. (6) Morbid obesity SNOMED Code(s): 491706353 Code(s): E66.01 - MORBID (SEVERE) OBESITY DUE TO EXCESS CALORIES Status: Acute Current Visit: Yes Annotation/Comment:: This will be concern for his discharge home as he has sleep apnea without a sleep apnea machine. Consi deration of oxygen therapy at home (7) Hyponatremia SNOMED Code(s): 31436607 Code(s): E87.1 - HYPO-OSMOLALITY AND HYPONATREMIA Status: Acute Current Visit: Yes Annotation/Comment:: His sodium yesterday was 135 he received normal saline with 20 of KCl at 125 throughout the night. His sodium today is 139 continue to monitor with daily labs. We will continue gentle hydration at this time due to his acute kidney injury. (8) Hypokalemia SNOMED Code(s): 98939512 Code(s): E87.6 - HYPOKALEMIA Status: Acute Current Visit: Yes Annotation/Comment:: Potassium initially on admission was 3.3 he is 3.7 today. His magnesium is 2.3. We will continue the normal saline with 20 of KCl with gentle hydration and repeat labs tomorrow. He has acute kidney injury as well. (9) ARISTIDES (acute kidney injury) SNOMED Code(s): 89588381, 52667646 Code(s): N17.9 - ACUTE KIDNEY FAILURE, UNSPECIFIED Status: Acute Current Visit: Yes Annotation/Comment:: On admission his creatinine was 1.35 with a BUN of 23. He has a baseline of 1.1 for his creatinine. He was gently hydrated with normal saline 20 of KCl overnight at 125 mils an hour. His potassium has improved his sodium is improved his kidney function is a creatinine of 1.24 today. We will try to get him back to baseline of 1.1. We will continue his fluid hydration and most likely discontinue tomorrow. - Problem List Review Problem List Initiated/Reviewed/Updated: Yes - My Orders Last 24 Hours: My Active Orders 02/26/21 14:52 Chest 1V Frontal [CR] Stat Blood Culture x2 Reflex Set [OM.PC] Stat 02/26/21 15:07 RT Aerosol Therapy [RC] ASDIRECTED 02/26/21 15:26 CULTURE BLOOD [BC] Stat PROCALCITONIN [REF] Stat 02/26/21 15:35 CULTURE BLOOD [BC] Stat 02/26/21 17:18 Admission Status [Patient Status] [ADT] Routine 02/26/21 17:30 NS + KCl 20mEq/L [Normal Saline with 20 mEq KCl] 1,000 ml IV ASDIRECTED 02/26/21 17:33 Cardiac Monitoring [RC] Q2HR Height and Weight [RC] DAILY Intake and Output [RC] .PRN Oxygen Therapy [RC] 2300 VTE/DVT Education [RC] PER UNIT ROUTINE Vital Signs [RC] Q4HR Acetaminophen [TylenoL] 650 mg PO Q4H PRN Resuscitation Status Routine 02/26/21 17:37 Notify Provider Vital Signs [RC] Q4HR 02/26/21 18:00 Enoxaparin [Lovenox] 40 mg SUBCUT BID 02/26/21 20:04 Fluticasone Propionate [Flonase] 0 gm NASBOTH BID PRN 02/27/21 05:45 UA RFX ALAYNA AND CULT IF INDIC [URIN] Stat 02/27/21 Breakfast Regular Diet [DIET] 02/27/21 08:00 Aspirin [Halfprin] 81 mg PO DAILY Cetirizine [ZyrTEC] 10 mg PO DAILY Diltiazem [Cardizem CD] 180 mg PO DAILY Losartan [Cozaar] 100 mg PO DAILY atorvaSTATin [Lipitor] 10 mg PO DAILY dexAMETHasone 6 mg PO DAILY hydroCHLOROthiazide 25 mg PO DAILY 02/27/21 08:45 PROCALCITONIN [REF] DAILY 02/27/21 17:30 Remdesivir 100 mg Sodium Chloride 0.9% [Normal Saline] 100 ml IV Q24H 02/28/21 05:00 BILIRUBIN DIRECT [CHEM] DAILY COMPREHENSIVE METABOLIC PN,CMP [CHEM] DAILY 02/28/21 05:11 C-REACTIVE PROTEIN [CHEM] AM CBC WITH AUTO DIFF [HEME] AM D-DIMER QUANTITATIVE [COAG] AM FERRITIN [CHEM] AM LACTATE DEHYDROGENASE,LDH [CHEM] AM LACTIC ACID [CHEM] AM 02/28/21 07:00 PROCALCITONIN [REF] DAILY 03/01/21 05:00 BILIRUBIN DIRECT [CHEM] DAILY COMPREHENSIVE METABOLIC PN,CMP [CHEM] DAILY 03/01/21 05:11 C-REACTIVE PROTEIN [CHEM] AM CBC WITH AUTO DIFF [HEME] AM D-DIMER QUANTITATIVE [COAG] AM FERRITIN [CHEM] AM LACTATE DEHYDROGENASE,LDH [CHEM] AM LACTIC ACID [CHEM] AM 03/01/21 07:00 PROCALCITONIN [REF] DAILY 03/02/21 05:00 BILIRUBIN DIRECT [CHEM] DAILY COMPREHENSIVE METABOLIC PN,CMP [CHEM] DAILY 03/02/21 05:11 C-REACTIVE PROTEIN [CHEM] AM CBC WITH AUTO DIFF [HEME] AM D-DIMER QUANTITATIVE [COAG] AM FERRITIN [CHEM] AM LACTATE DEHYDROGENASE,LDH [CHEM] AM LACTIC ACID [CHEM] AM 03/02/21 07:00 PROCALCITONIN [REF] DAILY 03/03/21 05:00 BILIRUBIN DIRECT [CHEM] DAILY COMPREHENSIVE METABOLIC PN,CMP [CHEM] DAILY 03/03/21 05:11 C-REACTIVE PROTEIN [CHEM] AM CBC WITH AUTO DIFF [HEME] AM D-DIMER QUANTITATIVE [COAG] AM FERRITIN [CHEM] AM LACTATE DEHYDROGENASE,LDH [CHEM] AM LACTIC ACID [CHEM] AM 03/03/21 07:00 PROCALCITONIN [REF] DAILY - Assessment Assessment:: A/P. We will continue the patient on inpatient status at this time due to his needs hypoxia as well as his acute kidney injury and the need to ensure that his laboratory evaluation has leveled out. He will most likely need oxygen therapy when he eats he is discharged home due to multiple factors his Covid status his morbid obesity as well as his sleep apnea. He will be evaluated today for home oxygen therapy. Sodium improved Potassium improved Continue therapies as previous. Continue IV hydration until tomorrow until his hopefully his kidney function is returned back to normal. VTE: Enoxaparin 40 mg subcutaneously twice daily for Covid. Sepsis: No signs of infection at this time. Procalcitonin pending. CODE STATUS full. We will continue this patient on inpatient management due to his hypoxia as well as the need for remdesivir. This patient really is feeling quite a bit better today. He really would like to go home. He is definitely continued oxygen upon discharge. Studies have shown that the dexamethasone is done much more for therapy than these patients than the remdesivir. Hopefully we get oxygen approved for him and if he is really willing to go home that he has been pushing we can consider discontinuing his remdesivir at that time as he does not want to stay in the hospital and we will send him home on dexamethasone and oxygen. But this will be determined tomorrow.
[2021-02-27] MEDS ORDERED: REMDESIVIR 100 MG in Sodium Chloride 0.9% 100 ML IV SCH (17:30)
[2021-02-28 07:53] VITALS: BP 122/79; PULSE 58
[2021-02-28] MEDS: Losartan 50 MG Tab PO SCH (07:54)
[2021-02-28] MEDS: Diltiazem 180 MG Cap.CD PO SCH (07:55)
[2021-02-28] MEDS: atorvaSTATin 10 MG Tab PO SCH (07:55)
[2021-02-28] MEDS: Dexamethasone 2 MG Tab PO SCH (07:55)
[2021-02-28] MEDS: Aspirin 81 MG Tab.EC PO SCH (07:55)
[2021-02-28] MEDS: Hydrochlorothiazide 25 MG Tab PO SCH (07:55)
[2021-02-28] MEDS: Cetirizine 10 MG Tab PO SCH (07:55)
[2021-02-28] MEDS: Enoxaparin 40 MG/0.4 ML Syringe SUBCUT SCH (07:56)
--- NOTE | 2021-02-28 10:35 | PCM.DCSUM1 ---
Discharge Summary - Discharge Data Discharge Date: 02/28/21 Discharge Disposition: Home, Self-Care 01 Condition: Good - Referral to Home Health Primary Care Physician: Aissatou Piña PA-C - Discharge Diagnosis/Problem(s) (1) Hypertension SNOMED Code(s): 40948909 ICD Code: I10 - ESSENTIAL (PRIMARY) HYPERTENSION Status: Acute Current Visit: No Problem Details: 122/79 well controlled. Continue home therapy. (2) Hypercholesteremia SNOMED Code(s): 56019815 ICD Code: E78.00 - PURE HYPERCHOLESTEROLEMIA, UNSPECIFIED Status: Acute Current Visit: No Problem Details: Stable continue home therapy. (3) Sleep apnea SNOMED Code(s): 97146608 ICD Code: G47.30 - SLEEP APNEA, UNSPECIFIED Status: Acute Current Visit: No Problem Details: Patient is resistant to wearing a CPAP mask. He will be on oxygen therapy once he is discharged home with COVID-19. He is only sleeping about 1 to 2 hours at a time. I really believe that he should get some sleep apnea management although he is resistant. Primary care to follow-up. (4) COVID-19 SNOMED Code(s): 846578840 ICD Code: U07.1 - COVID-19 Status: Acute Current Visit: No Problem Details: Patient is feeling quite well today. He has only received a couple doses of remdesivir although he really wants to go home and does not want to stay in hospital. He is in no distress. He is requiring only a little bit of oxygen. We will discontinue his course of remdesivir at this time and discharge him home. He will be continued on home oxygen therapy at home he qualified while in the hospital. We will continue his dexamethasone. Albuterol for as needed cough shortness of breath. Velasquez Lozano as well. (5) Hypoxia SNOMED Code(s): 973837281 ICD Code: R09.02 - HYPOXEMIA Status: Acute Current Visit: No Problem Details: Hypoxia from COVID-19. As well as sleep apnea and his morbid obesity. He qualified for oxygen and we will send him home with 2 L nasal cannula until the resolution of his Covid symptoms. We will also keep him on dexamethasone. (6) Morbid obesity SNOMED Code(s): 724521171 ICD Code: E66.01 - MORBID (SEVERE) OBESITY DUE TO EXCESS CALORIES Status: Acute Current Visit: Yes Problem Details: He clearly is diabetic from his labs as well as his morbid obesity. We are waiting on his hemoglobin A1c. He will be on oxygen at home. (7) Hyponatremia SNOMED Code(s): 78544185 ICD Code: E87.1 - HYPO-OSMOLALITY AND HYPONATREMIA Status: Acute Current Visit: Yes Problem Details: He has been off the fluid administration since about last night. His sodium is 139. I have it rechecked in the clinic in his follow-up. (8) Hypokalemia SNOMED Code(s): 13487452 ICD Code: E87.6 - HYPOKALEMIA Status: Acute Current Visit: Yes Problem Details: Potassium today is 3.9. Will not supplement as he has been eating and drinking appropriately. Have him follow-up with primary care (9) ARISTIDES (acute kidney injury) SNOMED Code(s): 87400629, 41633024 ICD Code: N17.9 - ACUTE KIDNEY FAILURE, UNSPECIFIED Status: Acute Current Visit: Yes Problem Details: Creatinine today 1.25 down from 1.35 on admission. His baseline is 1.1. He is eating and drinking. He is urinating well. We will make sure that he is drinking good fluids at home. He needs this rechecked in the clinic next week. (10) Hyperglycemia SNOMED Code(s): 12979770 ICD Code: R73.9 - HYPERGLYCEMIA, UNSPECIFIED Status: Acute Current Visit: Yes Problem Details: Patient's blood sugar has been elevating while he is in the hospital. He initially was in the low 200s and today he was 379. Hemogl obin A1c is pending. This patient risk factors are high with his obesity. I would like him to start on something for diabetic management today although he is refusing. He wants his primary care provider to set up. He shows no signs of DKA at this time. His hemoglobin A1c will be sent to his primary care provider as he is refusing to initiate anything for diabetes management today. - Patient Summary/Data Hospital Course: Patient was placed into the hospital in inpatient status for COVID-19 and hypoxia. Approximately 10 to 12 days prior to admission this patient started feeling short of breath fatigued tired. On or about February 26 the patient was tested positive for Covid. He came to the hospital to get his monoclonal antibody therapy which he did receive although he was noted to be quite hypoxic with a resting oxygen saturation of 84%. He was placed into the hospital placed on oxygen and started on dexamethasone as well as remdesivir. He really had no respiratory distress or severe cough or shortness of breath. His main complaint was fatigue and tiredness. He did have some acute kidney injury with a baseline of creatinine of 1.1 he was 1.3 on admission and after 2 L of fluid with gentle hydration in 2 days his creatinine has improved down to 1.2. He is only received 2 doses of his remdesivir although he would like to go home. I think that it is appropriate at this time as he is really not in any distress. He is going to need oxygen therapy at home. Which was set up for him prior to discharge. He also has underlying sleep apnea for which she is resistant to any therapy for at home. His blood sugar was elevated in the hospital and his highest was 379. His hemoglobin A1c is pending upon discharge although the patient is resistant to starting any diabetic medication and would like his primary care provider to start this upon discharge. There is no sign of DKA at this time. He does have underlying hypertension as well as morbid obesity as well as sleep apnea so he does have quite a bit of risk factors. His electrolyte abnormalities have resolved while he was in the hospital. His blood pressure and the rest of his vitals are okay other than his oxygen saturation. He will be discharged home early as the patient has requested this and he is in no distress and studies have shown the dexamethasone has done more than the remdesivir anyways. He will be discharged with a total regimen of 10 days of dexamethasone. On oxygen therapy. Albuterol and Tessalon Perles as needed. He needs to follow-up with his primary care provider in the next week for recheck of his labs as well as initiation of diabetic medications. Consideration of a sleep apnea machine. He needs to focus on diet weight loss and exercise for the primary management of his diabetes. Quarantine for total of 14 days. - Patient Instructions Diet: Diabetic Diet Other/Special Instructions: Make sure and drink plenty of fluids daily. If you are not urinating every 2 hours you are not drinking enough fluids. Quarantine for a total of 14 days from positive test. Eat regular jim diabetic meals. oxygen therapy at all times. Contact PCP if oxygen saturation on oxygen below 90%. Dexamethasone 6mg daily for the next 7 days. RX sent to [facility]. Albuterol inhaler, 2 puffs every 4 hrs as needed for SOB or cough. RX sent to [facility]. Tessalon Pearls, 1 kaylynn three times a day as needed for cough. Follow up with PCP middle of next week for recheck. You NEED TO DISCUSS diabetic management with your PCP at that time. Once this COVID situation is over weight loss diet and exercise is paramount for your diabetes. Best treatment even more than meds. Also sleep study for sleep apnea. - Discharge Plan Prescriptions/Med Rec: Albuterol Sulfate [Albuterol Sulfate HFA] 8.5 gm INH Q4H PRN #1 ea PRN Reason: Cough dexAMETHasone [Dexamethasone] 6 mg PO DAILY #21 tablet Benzonatate [Tessalon Perle] 100 mg PO TID PRN #20 capsule PRN Reason: Cough Home Medications: Home Meds Acetaminophen [Tylenol] 1,000 mg PO Q4HR PRN 06/18/16 [History] Aspirin [Halfprin] 81 mg PO BRK 06/18/16 [History] Cetirizine HCl [Zyrtec] 10 mg PO ASDIRECTED 06/18/16 [History] Fluticasone Propionate [Flonase] 1 spray NASBOTH BID PRN 06/18/16 [History] Losartan [Cozaar] 100 mg PO DAILY 06/18/16 [History] Diclofenac Sodium [Voltaren 1% Gel] 2 gm TOP BID 05/24/20 [History] Naproxen Sodium [Aleve] 220 mg PO BID PRN 05/24/20 [History] atorvaSTATin [Lipitor] 10 mg PO DAILY 05/24/20 [History] bisacodyL [Bisacodyl] 5 mg PO BEDTIME PRN 05/24/20 [History] dilTIAZem HCL [Diltiazem 24Hr ER (Cd)] 180 mg PO DAILY 05/24/20 [History] hydroCHLOROthiazide [Hydrochlorothiazide] 25 mg PO DAILY 05/24/20 [History] polyethylene glycoL 3350 [MiraLAX] 17 gm PO DAILY 05/24/20 [History] Albuterol Sulfate [Albuterol Sulfate HFA] 8.5 gm INH Q4H PRN #1 ea 02/28/21 [Rx] Benzonatate [Tessalon Perle] 100 mg PO TID PRN #20 capsule 02/28/21 [Rx] dexAMETHasone [Dexamethasone] 6 mg PO DAILY #21 tablet 02/28/21 [Rx] Oxygen Therapy Mode: Nasal Cannula Forms: ED Department Discharge Referrals: Aissatou Piña PA-C [Primary Care Provider] - - Discharge Summary/Plan Comment DC Time >30 min.: Yes Total # of Minutes for Discharge Time: 50 - General Info Date of Service: 02/28/21 Admission Dx/Problem (Free Text: Covid 19 did receive monoclonal hypoxia weakeness hyponatremia hypokalemia ARISTIDES Subjective Update: The patient feels even better than yesterday. He has little to no cough. He has no shortness of breath at rest. He is still requiring oxygen to keep his oxygen saturation above 90%. He has no pain in his chest. No weakness dizziness lightheadedness. He has had a good appetite. He has been voiding and having bowel movements. He has no abdominal pain. He has no pain to his extremities. He has no peripheral edema. He really feels quite a bit better than when he initially was here and he would like to be discharged home. - Patient Data Vitals - Most Recent: Last Vital Signs Temp 96.7 F L 02/28/21 07:52 Pulse 58 L 02/28/21 07:52 Resp 18 02/28/21 07:52 BP 122/79 02/28/21 07:54 Pulse Ox 95 02/28/21 07:52 Weight - Most Recent: 409 lb 14.4 oz I&O - Last 24 hours: Intake & Output 02/27/21 02/28/21 02/28/21 22:59 06:59 14:59 Intake Total 1976 Balance 1976 Lab Results - Last 24 hrs: Laboratory Results - last 24 hr 02/27/21 02/28/21 02/28/21 Range/Units 05:45 07:15 07:15 WBC 7.9 (4.0-10.2) K/uL RBC 4.40 (4.33-5.41) M/uL Hgb 13.3 D (13.1-16.8) g/dL Hct 38.0 L (39.0-49.0) % MCV 86.4 (84.0-98.0) fL MCH 30.2 (28.2-33.3) pg MCHC 35.0 (31.7-36.0) g/dL RDW 12.9 (11.2-14.1) % Plt Count 180 (150-350) K/uL Neut % (Auto) 85.7 H (45.0-80.0) % Lymph % (Auto) 7.2 L (10.0-50.0) % Luce % (Auto) 6.8 (2.0-14.0) % Eos % (Auto) 0.0 (0.0-5.0) % Baso % (Auto) 0.3 (0.0-2.0) % Neut # (Auto) 6.80 (1.40-7.00) K/uL Lymph # (Auto) 0.57 (0.50-3.50) K/uL Luce # (Auto) 0.54 (0.00-1.00) K/uL Eos # (Auto) 0.00 (0.00-0.50) K/uL Baso # (Auto) 0.02 (0.00-0.20) K/uL D-Dimer, Quantitative (0-400) ng/mL Sodium (136-145) mmol/L Potassium (3.5-5.1) mmol/L Chloride (98-107) mmol/L Carbon Dioxide (21.0-32.0) mmol/L Anion Gap (7-15) meq/L BUN (7-18) mg/dL Creatinine (0.51-1.17) mg/dL Est Cr Clr Drug Dosing mL/min Estimated GFR (MDRD) mL/min Glucose (70-99) mg/dL Lactic Acid 1.3 (0.4-2.0) mmol/L Calcium (8.5-10.1) mg/dL Ferritin (8-388) ng/mL Total Bilirubin (0.2-1.0) mg/dL Direct Bilirubin (0.0-0.2) mg/dL AST (15-37) U/L ALT (12-78) U/L Alkaline Phosphatase (46-116) IU/L Lactate Dehydrogenase (81-234) U/L C-Reactive Protein (<=0.9) mg/dL Total Protein (6.4-8.2) g/dL Albumin (3.4-5.0) g/dL Specimen Type Urinvoid Urine Color Brinda Urine Appearance Turbid Urine pH 5.5 (5.0-9.0) Ur Specific [place] >= 1.030 (1.005-1.030) Urine Protein 100 H (NEGATIVE) mg/dL Urine Glucose (UA) >=1000 H (NEGATIVE) mg/dL Urine Ketones Trace H (NEGATIVE) mg/dL Urine Occult Blood Moderate H (NEGATIVE) Urine Nitrite Negative (NEGATIVE) Urine Bilirubin Negative (NEGATIVE) Urine Urobilinogen 0.2 (0.2-1.0) E.U./dL Ur Leukocyte Esterase Negative (NEGATIVE) Urine RBC 5-10 H /HPF Urine WBC 0-5 /HPF Ur Epithelial Cells Few /LPF Amorphous Sediment Many H (0/HPF) /HPF Urine Bacteria Moderate H (NONE TO FEW) /HPF Granular Casts (Auto) Moderate Urinalysis Comment 02/28/21 02/28/21 02/28/21 Range/Units 07:15 07:15 07:15 WBC (4.0-10.2) K/uL RBC (4.33-5.41) M/uL Hgb (13.1-16.8) g/dL Hct (39.0-49.0) % MCV (84.0-98.0) fL MCH (28.2-33.3) pg MCHC (31.7-36.0) g/dL RDW (11.2-14.1) % Plt Count (150-350) K/uL Neut % (Auto) (45.0-80.0) % Lymph % (Auto) (10.0-50.0) % Luce % (Auto) (2.0-14.0) % Eos % (Auto) (0.0-5.0) % Baso % (Auto) (0.0-2.0) % Neut # (Auto) (1.40-7.00) K/uL Lymph # (Auto) (0.50-3.50) K/uL Luce # (Auto) (0.00-1.00) K/uL Eos # (Auto) (0.00-0.50) K/uL Baso # (Auto) (0.00-0.20) K/uL D-Dimer, Quantitative 584 H (0-400) ng/mL Sodium 139 (136-145) mmol/L Potassium 3.9 (3.5-5.1) mmol/L Chloride 102 (98-107) mmol/L Carbon Dioxide 33.9 H (21.0-32.0) mmol/L Anion Gap 7.0 (7-15) meq/L BUN 31 H (7-18) mg/dL Creatinine 1.26 H (0.51-1.17) mg/dL Est Cr Clr Drug Dosing 71.72 mL/min Estimated GFR (MDRD) 58 mL/min Glucose 379 H (70-99) mg/dL Lactic Acid (0.4-2.0) mmol/L Calcium 9.1 (8.5-10.1) mg/dL Ferritin 2192 H (8-388) ng/mL Total Bilirubin 0.6 (0.2-1.0) mg/dL Direct Bilirubin 0.2 (0.0-0.2) mg/dL AST 29 (15-37) U/L ALT 39 (12-78) U/L Alkaline Phosphatase 46 (46-116) IU/L Lactate Dehydrogenase 275 H (81-234) U/L C-Reactive Protein 11.6 H (<=0.9) mg/dL Total Protein 6.5 (6.4-8.2) g/dL Albumin 2.5 L (3.4-5.0) g/dL Specimen Type Urine Color Urine Appearance Urine pH (5.0-9.0) Ur Specific [place] (1.005-1.030) Urine Protein (NEGATIVE) mg/dL Urine Glucose (UA) (NEGATIVE) mg/dL Urine Ketones (NEGATIVE) mg/dL Urine Occult Blood (NEGATIVE) Urine Nitrite (NEGATIVE) Urine Bilirubin (NEGATIVE) Urine Urobilinogen (0.2-1.0) E.U./dL Ur Leukocyte Esterase (NEGATIVE) Urine RBC /HPF Urine WBC /HPF Ur Epithelial Cells /LPF Amorphous Sediment (0/HPF) /HPF Urine Bacteria (NONE TO FEW) /HPF Granular Casts (Auto) Urinalysis Comment ALAYNA Results - Last 24 hrs: Microbiology 02/26/21 15:35 Aerobic Blood Culture - Preliminary Blood - Venous - Lab Draw NO GROWTH AFTER 1 DAY Anaerobic Blood Culture - Preliminary NO GROWTH AFTER 1 DAY 02/26/21 15:26 Aerobic Blood Culture - Preliminary Blood - Venous NO GROWTH AFTER 1 DAY Anaerobic Blood Culture - Preliminary NO GROWTH AFTER 1 DAY Med Orders - Current: Current Medications Acetaminophen (Acetaminophen 325 Mg Tab) 650 mg PO Q4H PRN PRN Reason: Pain (Mild 1-3)/fever Last Admin: 02/26/21 21:28 Dose: 650 mg Documented by: Aspirin (Aspirin 81 Mg Tab.Ec) 81 mg PO DAILY [facility] Last Admin: 02/28/21 07:55 Dose: 81 mg Documented by: Atorvastatin Calcium (Atorvastatin 10 Mg Tab) 10 mg PO DAILY [facility] Last Admin: 02/28/21 07:55 Dose: 10 mg Documented by: Cetirizine HCl (Cetirizine 10 Mg Tab) 10 mg PO DAILY [facility] Last Admin: 02/28/21 07:55 Dose: 10 mg Documented by: Dexamethasone (Dexamethasone 2 Mg Tab) 6 mg PO DAILY [facility] Last Admin: 02/28/21 07:55 Dose: 6 mg Documented by: Diltiazem HCl (Diltiazem 180 Mg Cap.Cd) 180 mg PO DAILY [facility] Last Admin: 02/28/21 07:55 Dose: 180 mg Documented by: Enoxaparin Sodium (Enoxaparin 40 Mg/0.4 Ml Syringe) 40 mg SUBCUT BID [facility] Last Admin: 02/28/21 07:56 Dose: 40 mg Documented by: Fluticasone Propionate (Fluticasone Propionate Nasal [place] 16 Gm Bottle) 0 gm NASBOTH BID PRN PRN Reason: Allergies Hydrochlorothiazide (Hydrochlorothiazide 25 Mg Tab) 25 mg PO DAILY [facility] Last Admin: 02/28/21 07:55 Dose: 25 mg Documented by: Remdesivir 100 mg/ Sodium (Chloride) 100 mls @ 100 mls/hr IV Q24H [facility] Last Admin: 02/27/21 17:24 Dose: 100 mls/hr Documented by: Losartan Potassium (Losartan 50 Mg Tab) 100 mg PO DAILY [facility] Last Admin: 02/28/21 07:54 Dose: 100 mg Documented by: Discontinued Medications Albuterol/Ipratropium (Albuterol/Ipratropium 3.0-0.5 Mg/3 Ml Neb Soln) 3 ml NEB ONETIME ONE Stop: 02/26/21 15:08 Last Admin: 02/26/21 18:05 Dose: 3 ml Documented by: Albuterol/Ipratropium (Albuterol/Ipratropium 3.0-0.5 Mg/3 Ml Neb Soln) Confirm Administered Dose 3 ml .ROUTE .STK-MED ONE Stop: 02/26/21 17:28 Last Admin: 02/26/21 18:02 Dose: Not Given Documented by: Budesonide (Budesonide 0.5 Mg/2 Ml Neb Susp) 0.5 mg NEB ONETIME ONE Stop: 02/26/21 15:08 Last Admin: 02/26/21 18:05 Dose: 0.5 mg Documented by: Budesonide (Budesonide 0.5 Mg/2 Ml Neb Susp) Confirm Administered Dose 0.5 mg .ROUTE .STK-MED ONE Stop: 02/26/21 17:28 Last Admin: 02/26/21 18:02 Dose: Not Given Documented by: Dexamethasone (Dexamethasone 2 Mg Tab) 6 mg PO ONETIME ONE Stop: 02/26/21 14:58 Last Admin: 02/26/21 18:05 Dose: 6 mg Documented by: Dexamethasone (Dexamethasone 2 Mg Tab) Confirm Administered Dose 6 mg .ROUTE .STK-MED ONE Stop: 02/26/21 17:27 Last Admin: 02/26/21 18:03 Dose: Not Given Documented by: Potassium Chloride/Sodium Chloride (Normal Saline With 20 Meq Kcl) 1,000 mls @ 125 mls/hr IV ASDIRECTED [facility] Last Admin: 02/27/21 12:38 Dose: 125 mls/hr Documented by: Remdesivir 200 mg/ Sodium (Chloride) 250 mls @ 250 mls/hr IV ONETIME ONE Stop: 02/26/21 18:29 Last Admin: 02/26/21 19:54 Dose: 250 mls/hr Documented by: - Exam Quality Assessment: Reports: Supplemental Oxygen General: Reports: Alert, Oriented HEENT: Reports: Pupils Equal, Pupils Reactive, EOMI, Mucous Membr. Moist/Topaz Neck: Reports: Supple Lungs: Reports: Clear to Auscultation, Normal Respiratory Effort Cardiovascular: Reports: Regular Rate, Regular Rhythm GI/Abdominal Exam: Normal Bowel Sounds, Soft, Non-Tender (Male) Exam: Deferred Rectal (Males) Exam: Deferred Back Exam: Reports: Normal Inspection, Full Range of Motion Extremities: Normal Inspection, Normal Range of Motion, Non-Tender, No Pedal Edema, Normal Capillary Refill Skin: Reports: Warm, Dry, Intact Wound/Incisions: Reports: Healing Well Neurological: Reports: No New Focal Deficit Psy/Mental Status: Reports: Alert, Normal Affect, Normal Mood
[2021-02-28 10:39] LABS: HEMOGLOBIN A1C 8.5 % (4.3-5.7)
== END 2021-02-28 13:00 | disposition home or self-care (01) | DRG 137 ==
LOC: LL.ED 14:48 → INTOOBSV 17:25 → LL.MS 17:25 → OBSVTOIN 17:25 → UNDOADMOB 17:25 → UNDODISIN 02-28 13:00
PROVIDERS: ADMIT Nurse Practitioner Family; ATTEND Nurse Practitioner Family
PROC: XW033E5 Introduction of Remdesivir Anti-infective into Peripheral Vein, Percutaneous Approach, New Technology Group 5 (ICD-10-PCS; principal; 2021-02-26)
DX: U07.1 COVID-19 (principal); J96.01 Acute respiratory failure with hypoxia; E78.00 Pure hypercholesterolemia, unspecified; G47.30 Sleep apnea, unspecified; E66.01 Morbid (severe) obesity due to excess calories; E87.1 Hypo-osmolality and hyponatremia; E87.6 Hypokalemia; N17.9 Acute kidney failure, unspecified; R73.9 Hyperglycemia, unspecified; H54.7 Unspecified visual loss; I10 Essential (primary) hypertension; Z96.652 Presence of left artificial knee joint; K57.90 Diverticulosis of intestine, part unspecified, without perforation or abscess without bleeding; Z68.43 Body mass index [BMI] 50.0-59.9, adult; Z88.8 Allergy status to other drugs, medicaments and biological substances; Z79.82 Long term (current) use of aspirin; Z79.899 Other long term (current) drug therapy
CPT/HCPCS: 36415; 71045; 80053; 81001; 82248; 82728; 82803; 83036; 83605; 83615; 83735; 83880; 84145; 84484; 85025; 85379; 85610; 85730; 86140; 87040; 93005; 94640; 99223; 99233; 99239; A9270-GY; J1650; J3480; J7050; J7620-GY; J8540

== ENCOUNTER 2022-12-20 07:32 | Emergency (ER) | payer BC ==
[2022-12-20] MEDS: cefTRIAXone 1 GM Vial IM ONE (08:43)
[2022-12-20] MEDS: Lidocaine 1% 5 ML VIAL INJECT ONE (08:43)
[2022-12-20] MEDS: Take Home: Cephalexin 500 MG Cap, 6 Cap Pack PO ONE (08:44)
[2022-12-20 09:14] VITALS: BP 138/84; PULSE 85
== END 2022-12-20 08:50 | disposition home or self-care (01) ==
LOC: LL.ED 07:32 → SUPCPDRO 07:32 → LL.ED 08:50
DX: H60.12 Cellulitis of left external ear (principal); I10 Essential (primary) hypertension; E66.01 Morbid (severe) obesity due to excess calories; E78.00 Pure hypercholesterolemia, unspecified; Z68.30 Body mass index [BMI] 30.0-30.9, adult; Z79.899 Other long term (current) drug therapy; Z88.8 Allergy status to other drugs, medicaments and biological substances; Z79.82 Long term (current) use of aspirin
CPT/HCPCS: 96372; 99282; 99283; A9270-GY; J0696; J3490

== ENCOUNTER 2024-04-09 21:40 | Emergency (ER) | payer MEDICARE, BC ==
[2024-04-09 22:09] VITALS: PULSE 68
[2024-04-09] MEDS: methylPREDNISolone Sodium Succinate 125 MG/2 ML SDV IM ONE (22:48)
[2024-04-09] MEDS: HYDROmorphone 1 MG/ML Syringe IM ONE (22:48)
[2024-04-09] MEDS: Orphenadrine 60 MG/2 ML Inj IM ONE (22:51)
[2024-04-09] MEDS: Ondansetron 4 MG Tab.DIS PO ONE (22:55)
[2024-04-09 23:07] VITALS: BP 128/68
[2024-04-09] MEDS: Take Home: oxyCODONE HCl 5 MG Tab, 5 Tab Pack PO ONE (23:26)
== END 2024-04-09 23:15 | disposition home or self-care (01) ==
LOC: SUPCPDRO 21:40 → LL.ED 21:40
DX: M47.812 Spondylosis without myelopathy or radiculopathy, cervical region (principal); I10 Essential (primary) hypertension; E78.00 Pure hypercholesterolemia, unspecified; E66.9 Obesity, unspecified; Z86.16 Personal history of COVID-19; Z79.899 Other long term (current) drug therapy; Z79.82 Long term (current) use of aspirin; Z88.8 Allergy status to other drugs, medicaments and biological substances
CPT/HCPCS: 96372 ×2; 99283; 99284; A9270 ×2; J1171; J2360; J2919